=== PATIENT | male | born 1975 | race African-American/Black ===

== ENCOUNTER 2017-09-10 19:50 | Emergency (ER) | payer SELFPAY ==
[~2017-09-10] VITALS: Ht 177.8 cm; Wt 90.7 kg
[2017-09-10 19:58] VITALS: BP 126/76
== END 2017-09-10 20:19 | disposition home or self-care (01) ==
LOC: ER 19:56
DX: M67.432 Ganglion, left wrist (principal)
CPT/HCPCS: 29125; 99283; A4606; Z7610